=== PATIENT | female | born 2000 | race Two or more races ===

== ENCOUNTER 2019-05-11 09:58 | Outpatient (CLI) | payer OTHER | END 2019-05-11 10:00 | disposition home or self-care (01) | LOC: SONOGRAMA 09:58 | DX: R10.2 Pelvic and perineal pain (principal) ==

== ENCOUNTER 2020-05-17 10:52 | Outpatient (CLI) | payer OTHER | END 2020-05-17 11:01 | disposition home or self-care (01) | LOC: LAB 10:52 | DX: N39.8 Other specified disorders of urinary system (principal); E28.2 Polycystic ovarian syndrome; R70.0 Elevated erythrocyte sedimentation rate; N39.0 Urinary tract infection, site not specified ==

== ENCOUNTER → 2020-12-18 | Emergency (ER) | payer OTHER ==
[~2020-12-18] VITALS: Ht 160 cm; Wt 43.5 kg
== END | disposition home or self-care (01) ==
LOC: ER 22:07
DX: F41.0 Panic disorder [episodic paroxysmal anxiety] (principal)

== ENCOUNTER → 2020-12-19 | Emergency (ER) | payer OTHER | END | disposition home or self-care (01) | LOC: ER 04:17 | DX: F41.0 Panic disorder [episodic paroxysmal anxiety] (principal) ==